=== PATIENT | male | born 1965 | race Caucasian/White ===

== ENCOUNTER 2016-04-24 15:03 | Emergency (ER) | payer MEDICARE, MEDICAID ==
[~2016-04-24] VITALS: Ht 195.6 cm; Wt 81.0 kg
[~2016-04-24 15:03] MED LIST: IBUP800T28 PO
[2016-04-24 15:14] VITALS: BP 152/90; PULSE 114; RESP 18; O2SAT 95
--- NOTE | 2016-04-24 15:18 | ED.REPORT ---
HPI-Abd Pain M 40 and Over Date of Service Apr 24, 2016 ED Provider: Consuelo Coley History of Present Illness: worse times 2 weeks, abd pain. goes to the methadone clinic 50 mg just started at the clinic. no primary care. pain got out of hand is why he came in. toradol causes upset stomach. ibuprofen ok. pain on the right side. wants surgery for his hernia tonight Nursing Notes Stated Complaint: HERNIA Chief Complaint: General Complaint Nursing Notes Reviewed: Yes Allergies: Coded Allergies: ketorolac tromethamine (Verified Allergy, Unknown, nausea and vomiting, ) Scheduled PRN Ibuprofen (Ibuprofen) 800 Mg Tablet 800 MG PO TID PRN PRN For Pain Miscellaneous Medications ([None]) General Time Seen by MD: 15:10 Chief Complaint Abdominal pain Hx Obtained From: Patient Sudden in Onset?: No Symptom Duration: Since onset Past Medical History Past Medical History None reported. Past Surgical History right knee surgery Smoking History Current Every Day Smoker Social History on the methadone clinic per his report 04/24/2016 Alcohol Use: Denies alcohol use Drug Use: Meth (patient admits to meth use, behavior verifies this), Other Other Social History: Good social support, Homeless Occupation staying with girfriend, no work or school 04/24/2016 Ambulatory Status Independent Review of Systems Basic Review of Systems Eyes: Vision NL Hematologic: No bleeding, No bruising Allergy / Immune: No allergy Physical Exam Initial Vital Signs Vital Signs (First) Date Time Temp Pulse Resp B/P Pulse Ox O2 Delivery O2 Flow Rate FiO2 04/24/16 15:14 38.4 114 18 152/90 95 Room Air Initial VS: Reviewed, Vital signs normal Head / Eyes: Atraumatic, Normocephalic, PERRL ENT: Mucous membranes moist, Conjunctiva normal, No scleral icterus Neck: Supple, Non-tender, Full range of motion Lymphatic: No lymphadenopathy Extremities: Vascular intact, Neuro intact, No swelling, No tenderness Skin: Warm, Dry, No cyanosis Neurologic: Alert, Oriented, Nonfocal Psychiatric: Mood/affect normal, Behavior normal, Normal thought content General/Constitutional: Awake, Alert, No acute distress, Well appearing, Well developed, Well hydrated Respiratory / Chest: Atraumatic, Breath sounds NL, Breath sounds = bilat, No respiratory distress Cardiovascular: Heart rate NL, Regular rhythm, Heart sounds NL, No gallop Abdomen: Atraumatic, Soft, Non-tender, McBurney's non-tender hernia is reducible Back: Atraumatic, Inspection NL, Full range of motion Interpretation & Diagnostics Interpretation & Diagnostics: DICATIONS: 50-year-old male with right inguinal hernia. TECHNIQUE: Real-time focused scanning was performed of the inguinal region, with image documentation. COMPARISON: [facility], CT, CT KUB, 04/24/2016, 15:48. FINDINGS: Fat containing right inguinal hernia is again noted, and appears reducible on real-time scanning. No enlarged right inguinal lymph nodes. IMPRESSION: Fat containing reducible right inguinal hernia corresponds with findings on recent CT scan. Lab Results Interpretation Result Diagram: 04/24/16 1635 04/24/16 1635 Test 04/24/16 16:35 White Blood Count 11.0th/mm3 (3.8-10.1) Red Blood Count 4.59mil/mm3 (4.40-5.80) Hemoglobin 12.1g/dL (13.8-17.2) Hematocrit 37.8% (41.0-50.0) Mean Corpuscular Volume 82.4fL (81-100) Mean Corpuscular Hemoglobin 26.4pg (27.0-35.0) Mean Corpuscular Hemoglobin Concent 32.0% (32.0-37.0) Red Cell Distribution Width 14.2% (12.3-15.4) Platelet Count 200bil/L (150-400) Neutrophils (%) (Auto) 61.3% (40-74) Lymphocytes (%) (Auto) 15.2% (14-46) Monocytes (%) (Auto) 21.6% (4-12) Eosinophils (%) (Auto) 1.0% (0-5) Basophils (%) (Auto) 0.6% (0-3) Sodium Level 135mEq/L (134-144) Potassium Level 4.5mEq/L (3.5-5.2) Chloride Level 94mEq/L (97-108) Carbon Dioxide Level 22mmol/L (18-29) Blood Urea Nitrogen 21mg/dL (6-24) Creatinine 0.77mg/dL (0.76-1.27) Estimat Glomerular Filtration Rate 114mL/min (>59) Glucose Level 72mg/dL (60-99) Calcium Level 9.5mg/dL (8.5-10.1) Total Bilirubin 0.7mg/dL (0.0-1.2) Aspartate Amino Transf (AST/SGOT) 62U/L (0-50) Alanine Aminotransferase (ALT/SGPT) 47U/L (0-44) Alkaline Phosphatase 83U/L (25-150) Total Protein 7.4g/dL (6.4-8.4) Albumin 4.0g/dL (3.4-5.0) Hold Sears Top Tube Received (Received) CT Abd / Pelvis Interpretation Lung bases: Lung bases are clear. Heart size is normal. Urinary system: Both kidneys are normal in size. Solitary nonobstructing 2 mm left renal stone is present. No hydronephrosis or perinephric fat stranding. Both ureters appear non-dilated throughout their expected courses. Bladder wall thickness is normal; no calcified bladder stones. Other solid organs: Liver and spleen are normal in size. Gallbladder wall thickness is normal. Pancreas is normal in contours. No adrenal nodules. Peritoneum and bowel: Unenhanced bowel loops demonstrate normal wall thickness and caliber. The appendix is unable to be visualized. No free fluid or air. Nodes and vessels: No retroperitoneal or mesenteric adenopathy by size criteria. Aorta and inferior vena cava are normal in caliber, with mild aortoiliac atherosclerosis. Abdominal wall: No ventral hernias. Pelvis: No free pelvic fluid. Moderate indirect right inguinal hernia is now apparent, containing only fat. No inguinal adenopathy by CT size criteria. Bones: No suspicious bony lesions. No vertebral body compression fractures. IMPRESSION: 1. Moderate fat containing indirect right inguinal hernia repair appears new since 2013. 2. Solitary 2 mm nonobstructing left renal stone. No right renal stones or hydronephrosis. Dictated by: Samir Feliz M.D. on 04/24/2016 at 15:53 Approved by: Samir Feliz M.D. on 04/24/2016 at 16:02 Re-Eval/Medical Decision Med Decision/Clinical Course Patient with many requests to eat. After informed he could he requested a large meal. Patient with meth behavior, shaking, tangential thoughts. Hernia is reducible. Exam is consistent with a hernia, no evidence of hydrocele or ischemia bowel. Discharge & Departure Primary Impression: Right inguinal hernia Disposition: Home Vital Signs - All Vital Signs Date Time Temp Pulse Resp B/P Pulse Ox O2 Delivery O2 Flow Rate FiO2 04/24/16 17:32 36.2 95 24 132/88 96 Room Air 04/24/16 17:15 36.2 95 24 132/88 96 Room Air 04/24/16 15:14 38.4 114 18 152/90 95 Room Air Patient Instructions: Inguinal Hernia (ED) Additional Instructions: The ultrasound does show that your hernia is reducible. Your labs are normal. Please call general surgery Dr. Leahy to schedule a appointment to discuss repair. Use ibuprofen and or tylenol for any discomfort. Return with fever, vomiting or any other concerns. Establish in primary care, consider the residency clinic. Referrals: Blake Leahy MD [facility] EDSupervising Provider for APC: Marcelino Lima MD copies to: Blake Leahy MD; [facility] AyadrosalieConsuelo ERICA Apr 24, 2016 15:18
--- NOTE | 2016-04-24 16:03 | DRSVH ---
PROCEDURE: CT KUB ([id number]) INDICATIONS: 50-year-old male with right lower quadrant pain. TECHNIQUE: Noncontrast 5 mm thick sections acquired from the diaphragms to the symphysis. 5 mm thick coronal an d sagittal reformats were then performed. For radiation dose reduction, the following was used: aut omated exposure control, adjustment of mA and/or kV according to patient size. COMPARISON: [facility], CT, ABD/PELVIS W/CON (PNL), 06/13/2013, 12:21. FINDINGS: Image quality: Excellent. Lung bases: Lung bases are clear. Heart size is normal. Urinary system: Both kidneys are normal in size. Solitary nonobstructing 2 mm left renal stone is p resent. No hydronephrosis or perinephric fat stranding. Both ureters appear non-dilated throughout their expected courses. Bladder wall thickness is normal; no calcified bladder stones. Other solid organs: Liver and spleen are normal in size. Gallbladder wall thickness is normal. [place] creas is normal in contours. No adrenal nodules. Peritoneum and bowel: Unenhanced bowel loops demonstrate normal wall thickness and caliber. The елена endix is unable to be visualized. No free fluid or air. Nodes and vessels: No retroperitoneal or mesenteric adenopathy by size criteria. Aorta and inferior vena cava are normal in caliber, with mild aortoiliac atherosclerosis. Abdominal wall: No ventral hernias. Pelvis: No free pelvic fluid. Moderate indirect right inguinal hernia is now apparent, containing o nly fat. No inguinal adenopathy by CT size criteria. Bones: No suspicious bony lesions. No vertebral body compression fractures. IMPRESSION: 1. Moderate fat containing indirect right inguinal hernia repair appears new since 2013. 2. Solitary 2 mm nonobstructing left renal stone. No right renal stones or hydronephrosis. Dictated by: Samir Feliz M.D. on 04/24/2016 at 15:53 Approved by: Samir Feliz M.D. on 04/24/2016 at 16:02
--- NOTE | 2016-04-24 16:31 | DRSVH ---
PROCEDURE: US HERNIA INGUINAL INDICATIONS: 50-year-old male with right inguinal hernia. TECHNIQUE: Real-time focused scanning was performed of the inguinal region, with image documentation. COMPARISON: [facility], CT, CT [facility], 04/24/2016, 15:48. FINDINGS: Fat containing right inguinal hernia is again noted, and appears reducible on real-time sc anning. No enlarged right inguinal lymph nodes. IMPRESSION: Fat containing reducible right inguinal hernia corresponds with findings on recent CT sc an. Dictated by: Samir Feliz M.D. on 04/24/2016 at 16:27 Approved by: Samir Feliz M.D. on 04/24/2016 at 16:29
[2016-04-24 16:44] LABS: BASOPHILS % (AUTO) 0.6 % (0-3); MONOCYTES % (AUTO) 21.6 % (4-12); Mean Corpuscular Hemoglobin 26.4 pg (27.0-35.0); Mean Corpuscular Volume 82.4 fL (81-100); NEUTROPHILS % (AUTO) 61.3 % (40-74); Platelet Count 200 bil/L (150-400)
[2016-04-24 17:15] VITALS: BP 132/88; PULSE 95; RESP 24; O2SAT 96
[2016-04-24 17:32] VITALS: BP 132/88; PULSE 95; RESP 24; O2SAT 96
[2016-05-24] MEDS ORDERED: METH40TA2 PO (16:29)
[2016-05-24] MEDS ORDERED: IBUP800T28 PO (16:29)
== END 2016-04-24 17:33 | disposition home or self-care (01) ==
LOC: SED 15:03
DX: K40.90 Unilateral inguinal hernia, without obstruction or gangrene, not specified as recurrent (principal); F17.200 Nicotine dependence, unspecified, uncomplicated; Z88.6 Allergy status to analgesic agent

== ENCOUNTER 2016-05-26 06:30 | Day surgery (SDC) | payer MEDICARE, MEDICAID ==
[2016-05-26] VITALS (10 sets, daily range): BP systolic 99–153; BP diastolic 62–99; PULSE 50–60; RESP 6–17; O2SAT 92–100
[~2016-05-26] VITALS: Ht 193 cm; Wt 77.1 kg
[~2016-05-26 06:30] MED LIST changes: +Lactated Ringer's 1,000 ML IV SCH; +METH40TA2 PO
[2016-05-26] MEDS ORDERED: Ondansetron 2 mg/mL 2 mL Inj ONE (06:31)
[2016-05-26] MEDS ORDERED: Dexamethasone 4 mg/mL Inj ONE (06:31)
[2016-05-26] MEDS ORDERED: MetoCLOpramide 5 mg/mL 2 mL Inj ONE (06:31)
[2016-05-26] MEDS ORDERED: Propofol 10,000 mCg/mL 20 mL Inj ONE (06:31)
[2016-05-26] MEDS ORDERED: Lactated Ringer's 1,000 ML IV ONE (07:00)
[2016-05-26] MEDS: Vancomycin Inj 1,250 MG in 0.9% Sodium Chloride 250 ML IV ONE ×2 (07:21→07:49)
[2016-05-26] MEDS ORDERED: Lactated Ringer's 1,000 ML IV SCH (07:43)
[2016-05-26] MEDS ORDERED: Lactated Ringer's 500 ML IV PRN (07:43)
--- NOTE | 2016-05-26 07:43 | PCM.HPANE ---
Patient Data Surgeon Admitting Provider: Attending Provider:Danie Cho MD Primary Care Physician:Marquez Other Provider:Luna Horton Anesthesia Reason for Visit Right Inguinal Hernia Ht/WT & BMI Height (Feet): 6 Height (Inches): 4.00 Weight (Kilograms): 77.110 Body Mass Index 20.00 Allergies Coded Allergies: ketorolac tromethamine (Verified Allergy, Unknown, nausea and vomiting, ) Past Anesthesia History Anesthesia History: Denies:: Anesthesia Reactions Diabetes History Hx Diabetes?: No MRSA MRSA: Yes (per emr) Medications Home Meds Incl Beta [place]: No Reported Medications Methadone 40 Mg Tablet.sol80 Mg PO DAILY receives in 6 oz liquid/ dispensed at clinic 05/24/16 Ibuprofen 800 Mg [id number] Mg PO TID PRN For Pain Ref 0 05/24/16 Discontinued Reported Medications [None] No Conflict Check 10/12/12 Discontinued Scripts Ibuprofen 800 Mg [id number] Mg PO TID PRN For Pain #30 TABLET Prov:Haider Branch MD 01/09/16 History History of ENT Problems?: No Hx of Heart Problems?: No Cardiovascular History: Denies:: Congestive Heart Failure Hypertension Hx of Respiratory Problem?: No Respiratory History: Denies:: Tuberculosis Hx Neurologic Problems?: Yes Neurological History: Positive for:: Headaches (migraines) Hx of GI Problems?: Yes Gastrointestinal History: Positive for:: Hepatitis Other GI Pertinent History: right inguinal hernia current admission problem Hx Musculoskeletal Problems?: Yes Musculoskeletal History: Positive for:: Musculoskeletal Trauma (prior hx knee surgery) Hx of Psycho/Social Problems?: Yes (on no current meds per mother, bipolar hx) Psycho Social History: Denies:: Suicide Attempt Hx Surgeries?: Yes (knee surgery) Hx Any Other Health Problems?: Yes Other History: Denies:: Cancer Hx Diabetes: No Hx Alcohol Use: NoHx Substance Use: Yes (methamphetamine, marijuana occ. daily methadone) Smoking Status: Current Every Day Smoker Have You Smoked inLast 12 mo: Yes Stop/Bang Treated for Sleep Apnea?: No Do You Have a CPAP Machine?: No S-Snoring: Do You Snore Loudly: No T-Tired: feel tired, fatigued: No O-Obsered: Observed not breath: No P-Blood Pressure: treated: No B- Body Mass Index > 35 kg/m2: No A- Age over 50: No N- Neck Large Circumference: No G- Gender Male: Yes VLADIMIR Total Score: 1 VLADIMIR Risk Assessment: Low Risk, <3 Yes Risk Assessment Category Category 1A: Patient has history of documented sleep apnea, and HAS NOT received any narcotic, sedative or anesthesia administration during this stay. Category 1B: Patient has history of documented sleep apnea, and HAS received any narcotic , sedative or anesthesia administration during this stay Category 2: Patient has SUSPECTED Obstructive Sleep Apnea, and HAS received any narcotic , sedative or anesthesia administration during this stay. Category 3: Patient has SUSPECTED Obstructive Sleep Apnea and HAS NOT received narcotic, sedative or anesthesia administration during this stay. Category 4: Outpatient in Procedural Areas with known sleep apnea or who screen positive for High Risk via the STOP/BANG questionnaire. Exam Exam Vital Signs Vital Signs Date Time Temp Pulse Resp B/P Pulse Ox O2 Delivery O2 Flow Rate FiO2 05/26/16 07:01 35.9 58 17 153/99 100 Room Air General Appearance: Oriented X3 HEENT/AIRWAY: MP 2 Lungs: Normal Air Movement Heart: Regular Rate/Rhythm Meds/Labs/Diagnostics Admission Meds Current Medications Vancomycin HCl 1250 mg/Sodium Chloride 250 ml @ 166.667 mls/hr PREOP ONCE IV Last administered on 05/26/16 07:21; Start 05/26/16 at 06:00; Stop 05/26/16 at 07: 29; Status DC Lactated Ringer's (Lr) 1,000 ml @ ud STK-MED ONCE IV Last administered on 07:00; Start 05/26/16 at 07:00; Stop 05/26/16 at 07:01; Status DC Bupivacaine HCl (Sensorcaine-MPF 0.5% Inj) 30 ml STK-MED ONCE INFILTRATE Last administered on 05/26/16 07:21; Start 05/26/16 at 07:21; Stop 05/26/16 at 07:22; Status DC Plan Impression Patient chart reviewed, patient interviewed and anesthestic plan with risks, benefits, and alternatives discussed, and informed consent obtained. NPO Status: MILK SHAAVELINO & FRIHALLEY @2400 ASA Physical Status: ASA3 Severe Disease Anesthetic Plan: GA Bene/Risks/Altern/Consents: Yes HP Complete Prior to Induction: Yes Huber Hernandez MD May 26, 2016 07:43
[2016-05-26] MEDS ORDERED: Phenylephrine 10,000 mCg/mL Inj IVPUSH PRN (07:45)
[2016-05-26] MEDS ORDERED: EPHEDrine Sulfate 50 mg/mL Inj IVPUSH PRN (07:45)
[2016-05-26] MEDS ORDERED: HYDROmorphone 1 mg/mL Inj IVPUSH PRN (07:45)
[2016-05-26] MEDS ORDERED: Dexamethasone 4 mg/mL Inj IVPUSH PRN (07:45)
[2016-05-26] MEDS ORDERED: MetoCLOpramide 5 mg/mL 2 mL Inj IVPUSH PRN (07:45)
[2016-05-26] MEDS ORDERED: fentaNYL-PF 50 mCg/mL 2 mL Inj IVPUSH PRN (07:45)
[2016-05-26] MEDS ORDERED: Bupivacaine-MPF 0.5% 30 mL Inj INFILTRATE ONE (08:05)
[2016-05-26] MEDS ORDERED: HYDROcodone-APAP 5-325 mg Tablet PO PRN (08:25)
[2016-05-26] MEDS: Ondansetron 2 mg/mL 2 mL Inj IVPUSH PRN ×2 (09:35→09:48)
--- NOTE | 2016-05-26 09:56 | OP ---
[address] [address] OPERATIVE REPORT PATIENT: NERY NIEVES : 1965 MR#: [id number] ADMIT: 05/26/2016 JOB ID: [id number] DATE OF SURGERY: 05/26/2016 ANESTHESIA: General. PREOPERATIVE DIAGNOSIS(ES): Symptomatic right inguinal hernia. POSTOPERATIVE DIAGNOSIS(ES): Symptomatic right inguinal hernia (indirect). OPERATION: Open repair of inguinal hernia using mesh. SURGEON: Dr. Danie Cho. ASSISTANTS: Chay Peñaloza PA-C (the assistant sales manager was required for safe and timely completion of the case). COMPLICATIONS: None. ESTIMATED BLOOD LOSS: Less than 10 mL. CONDITION: Satisfactory. FINDINGS: There was a large indirect hernia with a thickened sac. This was repaired with a piece of Bard soft mesh. INDICATIONS/SIGNIFICANT HISTORY: The patient is a 50-year-old man who over the past year has noticed a bulge in his right groin which has slowly been growing. It bothers him, particularly bowel movements. He was referred to me and elected to undergo repair. OPERATIVE TECHNIQUE: The patient was taken into the operating room and placed in the supine position. General anesthesia was administered and preoperative antibiotics given. The abdomen and groin were prepped and draped in a standard surgical fashion. A procedure pause performed. Local anesthetic was injected to perform an ilioinguinal block as well as to anesthetize the incision. A right inguinal incision was made and dissection carried down through the skin and subcutaneous tissue. The aponeurosis of the external oblique was opened in line with the fibers to reveal the inguinal canal. The cord was circumferentially dissected free. The floor appeared intact. The cord was investigated and the large thickened sac was found. This was freed from the cord and then high ligated with a 3-0 Vicryl. The redundant sac was excised. A piece of soft polypropylene mesh was then trimmed to the appropriate size and secured in place using interrupted 2-0 PDS sutures. The result was a nice reinforcement of the fold with a recreation of the internal ring. The aponeurosis of the external oblique was then closed with running 3-0 Vicryl. Cal's was closed with interrupted 3-0 Vicryl. The skin was closed using a running 4-0 Monocryl. Dermabond was applied. The entire procedure was well tolerated without complication.
--- NOTE | 2016-05-26 11:04 | PCM.ANEP1 ---
Post Anesthesia Phase 1 PACU Phase 1 Assessment Vital Signs Vital Signs Date Time Temp Pulse Resp B/P Pulse Ox O2 Delivery O2 Flow Rate FiO2 05/26/16 09:48 53 15 140/90 99 Room Air 05/26/16 09:28 51 14 129/67 99 Room Air 05/26/16 09:20 36.5 60 11 113/73 99 Room Air 05/26/16 09:15 58 9 112/75 98 Room Air 05/26/16 09:05 50 6 109/70 100 Simple Mask 8 05/26/16 09:00 52 6 106/69 100 Simple Mask 8 05/26/16 08:55 52 6 105/66 100 Simple Mask 8 05/26/16 08:50 55 7 99/64 99 Simple Mask 12 05/26/16 08:45 36.6 55 7 100/62 96 Simple Mask 8 05/26/16 07:01 35.9 58 17 153/99 100 Room Air Anesthetic Administered: GA Level of Alertness: Awake, talking Pain: No Nausea or Vomiting: No Airway Device: Oralpharangeal Airway Oxygen Delivery: Room Air Lungs: Normal Air Movement Huber Hernandez MD May 26, 2016 11:04
--- NOTE | 2016-05-26 11:05 | PCM.ANEP2 ---
Post Anesthesia Evaluation ASA/CMS Post Anesthesia VS in Patient's Normal Range?: Yes Resp Stable; Airway Patent?: Yes CV Function & Hydration Stable: Yes Mental Status Recovered?: Yes Pain control Satisfactory?: Yes N/V Control Satisfactory?: Yes Huber Hernandez MD May 26, 2016 11:05
== END 2016-05-26 23:59 | disposition home or self-care (01) ==
LOC: SAS 06:30
PROVIDERS: ATTEND General Practice
DX: K40.90 Unilateral inguinal hernia, without obstruction or gangrene, not specified as recurrent (principal); F31.9 Bipolar disorder, unspecified; B18.2 Chronic viral hepatitis C; F17.210 Nicotine dependence, cigarettes, uncomplicated; F15.10 Other stimulant abuse, uncomplicated; F12.90 Cannabis use, unspecified, uncomplicated; Z79.891 Long term (current) use of opiate analgesic; Z59.0 Homelessness; Z86.14 Personal history of Methicillin resistant Staphylococcus aureus infection
CPT/HCPCS: 49505; C1781; J1100; J2405; J2765; J3370; J7050; J7120

== ENCOUNTER 2016-09-06 10:51 | Emergency (ER) | payer MEDICARE, MEDICAID ==
[~2016-09-06] VITALS: Ht 185.4 cm; Wt 81.8 kg
[~2016-09-06 10:51] MED LIST changes: -Lactated Ringer's 1,000 ML IV SCH
[2016-09-06 11:09] VITALS: BP 112/75; PULSE 80; RESP 12; O2SAT 99
--- NOTE | 2016-09-06 12:11 | DRSVH ---
PROCEDURE: X-RAY RIGHT HAND, MINIMUM THREE VIEWS ([id number]) INDICATIONS: swelling, wound to R index finger TECHNIQUE: 3 views of the hand(s) acquired. COMPARISON: None. FINDINGS: Bones: No fractures or dislocations. Carpal bones are normally aligned. No suspicious bony lesions . The bone mineralization is within normal limits. There are mild degenerative changes noted involv ing the metacarpophalangeal and interphalangeal joints of the hand. Slight deformity involving the 5 th metacarpal may be related to previous trauma, which has healed. There are mild degenerative lovett es noted involving the 1st carpometacarpal joint. Minimal degenerative cystic change involving the d istal pole of the scaphoid is present. Soft tissues: No suspicious soft tissue calcifications. Mild soft tissue swelling of the index fing er is present. No unexpected radiopaque foreign bodies. IMPRESSION: 1. Soft tissue swelling of the index finger. No radiopaque foreign bodies. 2. Mild degenerative changes of the right hand. No acute fracture. Dictated by: Norberto Chan M.D. on 09/06/2016 at 11:08 Approved by: Norberto Chan M.D. on 09/06/2016 at 11:09
--- NOTE | 2016-09-06 12:48 | ED.REPORT ---
HPI-Extremity Problem Upper Date of Service Sep 06, 2016 ED Provider: History of Present Illness: right hand index finger , opened by self, some dischagre out. started yesterday. primary care is no one. tdap 5 years ago. right hand dominant Nursing Notes Stated Complaint: HAND INFECTION Chief Complaint: Skin Rash/Abscess Nursing Notes Reviewed: Yes Allergies: Coded Allergies: ketorolac tromethamine (Verified Allergy, Unknown, nausea and vomiting, ) Scheduled Methadone (Methadone) 40 Mg Tablet.steffanie 80 MG PO DAILY receives in 6 oz liquid/ dispensed at clinic Scheduled PRN Ibuprofen (Ibuprofen) 800 Mg Tablet 800 MG PO TID PRN PRN For Pain General Time Seen by MD: 12:48 Chief Complaint Finger injury right 2 Hx Obtained From: Patient Onset Occurred: Yesterday Symptom Duration: Since onset Past Medical History Past Medical History None reported. Past Surgical History right knee surgery Smoking History Current Every Day Smoker Social History on the methadone clinic per his report 04/24/2016 Alcohol Use: Denies alcohol use Drug Use: Meth, Other Other Social History: Good social support, Homeless Occupation staying with girfriend, no work or school 04/24/2016 Ambulatory Status Independent Review of Systems Basic Review of Systems Eyes: Vision NL, No discharge : No dysuria, No frequency Psychiatric: Normal thought content Physical Exam Initial Vital Signs Vital Signs (First) Date Time Temp Pulse Resp B/P Pulse Ox O2 Delivery O2 Flow Rate FiO2 09/06/16 11:09 37.0 80 12 112/75 99 Room Air Initial VS: Reviewed, Vital signs normal General/Constitutional: Well-developed, Well-nourished Head / Eyes: Atraumatic, Normocephalic, PERRL ENT: Mucous membranes moist, Conjunctiva normal, No scleral icterus Neck: Supple, Non-tender, Full range of motion Respiratory: Breath sounds normal, Clear to auscultation, No respiratory distress Cardiovascular: Regular rate & rhythm, Heart sounds normal, Intact distal pulses Abdomen / GI: Soft, Non-tender, No guarding, No rebound, No distention Back: No CVA tenderness Lymphatic: No lymphadenopathy Lower Extremities: Vascular intact, Neuro intact, No swelling, No tenderness Skin: Warm, Dry, No cyanosis Neurologic: Alert, Oriented, Nonfocal Psychiatric: Mood/affect normal, Behavior normal, Normal thought content General/Constitutional: Awake, Alert, No acute distress, Well appearing, Well developed, Well hydrated Respiratory / Chest: Atraumatic, Breath sounds NL, Breath sounds = bilat, No respiratory distress Cardiovascular: Heart rate NL, Regular rhythm, Heart sounds NL, No gallop Upper Extremity / MS: Atraumatic, Inspection NL, Full range of motion, No swelling right index finger has 3 mm site of fibrin clot. hand has mild diffuse swelling. No erthyma, no increased warmth. No palpable discharge palpable. Full range of motion, sensation intact distally, cap refill less than 2 sec. Skin: Atraumatic, Color NL Re-Eval/Medical Decision Med Decision/Clinical Course 51 year old male presents to the ER for evualation of "bug bite" which he states occured 2 night ago. States he squeezed and a small amount of discharge came out. He reports getting the "yellow core" out. Hand is mildly swollen. Finger has fibrin clot over site. No acute sign of any discharge, No erthyma. No sign of compartment syndrome or fracture. Discharge & Departure Impression: Primary Impression: Abscess Disposition: Home Patient Instructions: Abscess (ED) Additional Instructions: There is a small abscess on your right index finger that you have drained. Continue with warm soaks 3 times a day for 15 minutes each time. Start bactrim in the am and pm for 7 days. Apply bactroban daily to the site. Elevate the hand as much as possible. Return on for a recheck. Referrals: [facility] EDSupervising Provider for APC: Arnol Su MD copies to: [facility] Consuelo Coley Sep 06, 2016 12:48
[2016-09-06] MEDS ORDERED: Trimethoprim-Sulfa 160 mg-800 mg Tablet PO ONE (12:55)
[2016-09-06] MEDS ORDERED: Mupirocin 2% 22 Gm Ointment TOPICAL ONE (12:55)
[2016-09-06 13:09] VITALS: BP 126/82; PULSE 74; RESP 12; O2SAT 100
[2016-09-06 13:51] VITALS: BP 126/82; PULSE 74; RESP 12; O2SAT 100
== END 2016-09-06 13:52 | disposition home or self-care (01) ==
LOC: EDUNIT# 10:51 → EDBD 10:51 → SED 12:25
DX: L02.511 Cutaneous abscess of right hand (principal); F17.200 Nicotine dependence, unspecified, uncomplicated; Z88.8 Allergy status to other drugs, medicaments and biological substances